=== PATIENT | male | born 1975 | race Caucasian/White ===

== ENCOUNTER 2021-05-02 18:27 | Emergency (ER) | payer OTHER ==
[~2021-05-02] VITALS: Ht 172.7 cm; Wt 81.6 kg
[2021-05-02 19:04] LABS: HEMOGLOBIN 15.3 gm/dl (14.0-17.5); RED BLOOD COUNT 4.79 M/UL (4.20-5.50); WHITE BLOOD COUNT 14.1 K/UL (4.5-11.0)
[2021-05-02 19:43] LABS: BUN/CREATININE RATIO 12 (0-10)
[2021-05-03 00:05] LABS: BUN/CREATININE RATIO 19 (0-10)
[2021-05-03] MEDS ORDERED: SUBOXONE 8 MG-1 EACH SL (18:38)
[2021-05-03] MEDS ORDERED: QUETIAPINE FUMA50 MG PO (18:39)
== END 2021-05-03 22:30 | disposition short-term general hospital (02) ==
LOC: ER1 18:27
PROVIDERS: Emergency Medicine
DX: T39.1X2A Poisoning by 4-Aminophenol derivatives, intentional self-harm, initial encounter (principal); Z20.822 Contact with and (suspected) exposure to COVID-19; F17.210 Nicotine dependence, cigarettes, uncomplicated
CPT/HCPCS: 80053; 80307; 81001; 82550; 82553; 83874; 84450; 84460; 84484; 85025; 85610; 85730; 93005; 96374; 96375; 96376; 99285; G0480; J0132; J2405; J7060; J7070; U0002